=== PATIENT | female | born 1980 | race Hispanic/Latino ===

== ENCOUNTER 2016-11-05 05:24 | Inpatient (IN) | payer OTHER ==
[~2016-11-05] VITALS: Ht 160 cm; Wt 92.5 kg
[~2016-11-05 05:24] MED LIST: FLEXERIL10 MG PO; MOTRIN 600 MG600 MG PO
[2016-11-05 06:44] LABS: ABSOLUTE BASOPHIL COUNT 0 /CUMM (0.0-0.2); ABSOLUTE EOSINOPHIL COUNT 0.1 /CUMM (0.0-0.7); ABSOLUTE GRANULOCYTE CT 4.4 /CUMM (1.4-6.5); ABSOLUTE LYMPH COUNT 1.6 /CUMM (1.2-3.4); ABSOLUTE MONOCYTE COUNT 0.5 /CUMM (0.10-0.60); BASOPHIL % 0.5 % (0.0-2.0); EOSINOPHIL % 1.9 % (0-5); GRANULOCYTE % 65.3 % (42.2-75.2); HEMATOCRIT 31.8 % (37-47); MEAN CORPUSCULAR HGB 29.1 PG (27.0-31.0); MEAN CORPUSCULAR HGB CONC 33.5 G/DL (33.0-37.0); MEAN PLATELET VOLUME 8.6 FL (7.4-10.4); PLATELET COUNT 183 /CUMM (130-400); RBC DISTRIBUTION WIDTH 15.7 % (11.5-14.5); RED BLOOD CELL CT 3.66 /CUMM (4.20-5.40); WHITE BLOOD CELL COUNT 6.7 /CUMM (4.8-10.8)
[2016-11-05 07:12] VITALS: BP 110/74
[2016-11-05] MEDS ORDERED: PRENATAL TABLE1 EAC2 PO (10:32)
--- NOTE | 2016-11-05 12:33 | History & Physical ---
General Information and HPI MD Statement: I have seen and personally examined PATRICIA ALDRICH and documented this H&P. The patient is a 36 year old female at [40] weeks and [6] days gestation who presented with a chief complaint of [rupture of membrains and painfull uterine contractions]. Source of Information: patient, old records Exam Limitations: no limitations History of Present Illness: pt has been having painful uc's all night noted rom this am. 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 Denies: chills, fever. EENTM: Denies: blurred vision, double vision, visual changes. Cardiovascular: Reports: edema. Denies: chest pain. Respiratory: Denies: cough, orthopnea, short of breath. Neurological/Psychological: Denies: anxiety, depressed. Exam & Diagnostic Data Last 24 Hrs of Vital Signs/I&O vss Vital Signs Date Time Temp Pulse Resp B/P Pulse O2 O2 Flow FiO2 Ox Delivery Rate 11/05 0712 110/74 Intake & Output 11/05 1600 11/05 0800 11/05 0000 Intake Total Output Total Balance Patient 204 lb Weight Obstetric Exam Wgt Gained During : 37# Pelvimetry: tested to 7#5oz Dilation (cm): 1 Effacement (%): 50 Station: -3 Membranes: SROM Fluid: clear Fundal Height (cm): 40 Multiple Gestation? No Contractions: q4min #1 - FHR Baseline: 144 Category: 1 Estimated Weight: 3800g Presentation: vtx Patient for Induction? No Physical Exam General Appearance Alert, Oriented X3, Cooperative, No Acute Distress Skin No Rashes HEENT Atraumatic Neck Supple Cardiovascular Regular Rate Lungs Clear to Auscultation Neurological Normal Gait, Normal Speech Labs Blood Type & Rh: B pos Antibody Screen: neg Hct/Hgb & Platelets #1: 35/12/226 Hct/Hgb & Platelets #2: 30.8/10.1/213 Rubella: imm VDRL #1: nr VDRL #2: nr HbsAg: neg HIV #1: nr HIV #2 nr 1 Hr P 3 Hr P/155/122/88 normal Group B Strep: neg Initial Ultrasound: 03/13/2016 7weeks Anatomy Ultrasound: 06/18/2016 normal XY Ultrasound for EFW: 10/08/2016 34th percentile growth Genetic Testing: CF neg [id number] negative Last 24 Hrs of Labs/Charanjit: Laboratory Tests 11/05/16 0625: Estimated GFR > 60, Uric Acid 3.3, AST 25, ALT 30, Lactate Dehydrogenase 482, CBC w Diff NO MAN DIFF REQ, RBC 3.66 L, MCV 87.0, MCH 29.1, RDW 15.7 H, MPV 8.6, Gran % 65.3, Lymphocytes % 24.2, Monocytes % 8.1, Eosinophils % 1.9, Basophils % 0.5, Absolute Granulocytes 4.4, Absolute Lymphocytes 1.6, Absolute Monocytes 0.5, Absolute Eosinophils 0.1, Absolute Basophils 0, PUBS MCHC 33.5 11/05/16 0615: Urine Color YEL, Urine Clarity CLEAR, Urine pH 6.5, Ur Specific [place] 1.020, Urine Protein NEG, Urine Ketones NEG, Urine Nitrite NEG, Urine Bilirubin NEG, Urine Urobilinogen 0.2, Ur Leukocyte Esterase NEG, Ur Microscopic EXAM NOT REQUIRED, Urine Hemoglobin NEG, Urine Glucose NEG Microbiology 11/05 1110 URINE ROUT: Urine Culture - RECD Assessment/Plan Assessment/Plan: iup at term srom in early labor AMA normal genetic testing H/O asthma no meds 22 week loss thought to be secondary to chori. multiple first trimester losses plan epidural anasthesia expectant management. As Ranked By This Provider Problem List: 1. Core Measures/Miscellaneous Venous Thromboembolism VTE Risk Factors: / VTE Contraindications: No Contraindications VTE Prophylaxis Ordered Inpt: Early Ambulation VTE Diagnosis: No Beta Serena Is Beta Serena a Home Med? No Antibiotics Is Patient on Antibiotics? No
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
[2016-11-06 06:55] LABS: ABSOLUTE BASOPHIL COUNT 0 /CUMM (0.0-0.2); ABSOLUTE EOSINOPHIL COUNT 0.1 /CUMM (0.0-0.7); ABSOLUTE GRANULOCYTE CT 7.5 /CUMM (1.4-6.5); ABSOLUTE LYMPH COUNT 1.4 /CUMM (1.2-3.4); ABSOLUTE MONOCYTE COUNT 0.7 /CUMM (0.10-0.60); BASOPHIL % 0.2 % (0.0-2.0); EOSINOPHIL % 0.6 % (0-5); GRANULOCYTE % 77.5 % (42.2-75.2); MEAN CORPUSCULAR HGB 29.4 PG (27.0-31.0); MEAN CORPUSCULAR HGB CONC 33.4 G/DL (33.0-37.0); MEAN CORPUSCULAR VOLUME 87.8 FL (81.0-99.0); MEAN PLATELET VOLUME 8.8 FL (7.4-10.4); PLATELET COUNT 146 /CUMM (130-400); RBC DISTRIBUTION WIDTH 16.1 % (11.5-14.5); RED BLOOD CELL CT 3.19 /CUMM (4.20-5.40); WHITE BLOOD CELL COUNT 9.6 /CUMM (4.8-10.8)
--- NOTE | 2016-11-06 10:01 | PN- OBGYN ---
Surgical Brief Attending Note Brief Attending Note: +AMBULATING, VOIDING , TOLERATING PAIN AND PO. +NURSING. MOD LOCHIA VSSAF FF@U EXT: NO CALF TENDERNESS. 1+PEDAL EDEMA B/L Laboratory Tests 11/06/16 0605: CBC w Diff NO MAN DIFF REQ, RBC 3.19 L, MCV 87.8, MCH 29.4, RDW 16.1 H, MPV 8.8, Gran % 77.5 H, Lymphocytes % 14.8 L, Monocytes % 6.9, Eosinophils % 0.6, Basophils % 0.2, Absolute Granulocytes 7.5 H, Absolute Lymphocytes 1.4, Absolute Monocytes 0.7 H, Absolute Eosinophils 0.1, Absolute Basophils 0, PUBS MCHC 33.4 11/05/16 0625: Estimated GFR > 60, Uric Acid 3.3, AST 25, ALT 30, Lactate Dehydrogenase 482, CBC w Diff NO MAN DIFF REQ, RBC 3.66 L, MCV 87.0, MCH 29.1, RDW 15.7 H, MPV 8.6, Gran % 65.3, Lymphocytes % 24.2, Monocytes % 8.1, Eosinophils % 1.9, Basophils % 0.5, Absolute Granulocytes 4.4, Absolute Lymphocytes 1.6, Absolute Monocytes 0.5, Absolute Eosinophils 0.1, Absolute Basophils 0, PUBS MCHC 33.5 11/05/16 0615: Urine Color YEL, Urine Clarity CLEAR, Urine pH 6.5, Ur Specific [place] 1.020, Urine Protein NEG, Urine Ketones NEG, Urine Nitrite NEG, Urine Bilirubin NEG, Urine Urobilinogen 0.2, Ur Leukocyte Esterase NEG, Ur Microscopic EXAM NOT REQUIRED, Urine Hemoglobin NEG, Urine Glucose NEG Microbiology 11/05 1110 URINE ROUT: Urine Culture - RES A/P PPD1. DOING WELL. PLAN ROUTINE PP CARE. MILD ANEMIA. WILL NEED IRON UPON DISCHARGE. COUNSELED ON CIRCUMCISION.
== END 2016-11-07 11:30 | DRG 542 ==
LOC: CBCO 05:24 → GNO 06:56
PROVIDERS: Obstetrics & Gynecology; ADMIT Obstetrics & Gynecology
PROC: 0DQR0ZZ Repair Anal Sphincter, Open Approach (ICD-10-PCS; principal; 2016-11-05)
PROC: 10D07Z6 Extraction of Products of Conception, Vacuum, Via Natural or Artificial Opening (ICD-10-PCS; 2016-11-05)
DX: O70.20 Third degree perineal laceration during delivery, unspecified (principal); Z3A.40 40 weeks gestation of pregnancy; Z37.0 Single live birth
CPT/HCPCS: GNOS; 81003; 87086; 96360; G0378; G0463; J0595; J7120

== ENCOUNTER 2018-02-20 18:53 | Emergency (ER) | payer OTHER ==
[~2018-02-20 18:53] MED LIST changes: +PRENATAL TABLE1 EAC2 PO
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
[2018-02-20 21:20] VITALS: BP 120/71
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
[2018-02-20] MEDS ORDERED: ROBAXIN-750750 M1 PO (22:42)
== END 2018-02-20 22:47 ==
LOC: ERH 18:53
DX: M54.2 Cervicalgia (principal); R51 Headache; M54.5 Low back pain; V89.2XXA Person injured in unspecified motor-vehicle accident, traffic, initial encounter; Y92.410 Unspecified street and highway as the place of occurrence of the external cause
CPT/HCPCS: 72110; 96372; J1885